=== PATIENT | male | born 1945 | race Caucasian/White ===

== ENCOUNTER → 2020-01-01 08:59 | Outpatient (CLI) | payer MEDICARE, OTHER, SELFPAY ==
[2020-01-01 10:18] LABS: Add Manual Diff / Slide Review NO; Basophils Absolute Auto 100 /uL (0-100); Basophils Percent Auto 0.8 % (0-2); Eosinophils Absolute Auto 200 /uL (0-450); Eosinophils Percent Auto 2.9 % (2-4); Hemoglobin 12.5 g/dL (13.5-17.5); Lymphocytes Absolute Auto 1700 /uL (1100-4500); Lymphocytes Percent Auto 22.9 % (25-40); Mean Corpuscular HGB Conc 33.7 % (30-36); Mean Corpuscular Hemoglobin 31.6 PG (26-34); Mean Corpuscular Volume 93.7 fL (80-100); Monocytes Absolute Auto 600 /uL (0-900); Monocytes Percent Auto 8.6 % (3-14); Neutrophils Absolute Auto 4700 /uL (1500-7000); Neutrophils Percent Auto 64.8 % (50-75); Platelet Count 225 X10^3/uL (150-400); Red Blood Cell Count 3.95 X10^6/uL (4.5-5.9); Red Cell Distribution Width 14.3 % (11.6-14.8); White Blood Cell Count 7.3 X10^3/uL (4.5-11.0)
[2020-01-01 10:29] LABS: Alanine Aminotransferase 30 IU/L (<50); Albumin 4.3 g/dL (3.5-5.0); Albumin Globulin Ratio 1.5 (1.0-2.8); Alkaline Phosphatase 49 U/L (38-126); Aspartate Aminotransferase 32 IU/L (17-59); BUN Creatinine Ratio 16.3 (6-22); Bilirubin Total 0.5 mg/dL (0.2-1.3); Blood Urea Nitrogen 14 mg/dL (9-20); Calcium 9.3 mg/dL (8.4-10.2); Carbon Dioxide 30 mmol/L (22-32); Chloride 104 mmol/L (98-107); Cholesterol 79 mg/dL (140-199); Estimated Glomerular Filt Rate > 60.0 mL/min (>60); Globulin 2.9 g/dL (1.7-4.1); Glucose 105 mg/dL (80-110); HDL Cholesterol 22 mg/dL (40-60); HEMOLYSIS < 15 (0-50); LDL Cholesterol Calculated 39 mg/dL (<100); Potassium 4.8 mmol/L (3.4-5.1); Sodium 140 mmol/L (137-145); Total Protein 7.2 g/dL (6.3-8.2); Triglycerides 92 mg/dL (35-150)
[2020-01-01 10:58] LABS: Prostate Specific Antigen Scrn 1.42 ng/mL (0.1-4.0)
== END ==
PROVIDERS: Family Provider Family Medicine; PCP Internal Medicine; Referring Provider Internal Medicine; Visit Provider Internal Medicine
DX: I25.10 Atherosclerotic heart disease of native coronary artery without angina pectoris (principal); E78.2 Mixed hyperlipidemia; I10 Essential (primary) hypertension; Z12.5 Encounter for screening for malignant neoplasm of prostate
CPT/HCPCS: 36415; 80053; 80061; 85025; G0103

== ENCOUNTER → 2022-05-24 10:24 | Outpatient (CLI) | payer MEDICARE, OTHER, SELFPAY ==
--- NOTE | 2022-05-24 | DI.CT.S_ITS ---
PROCEDURE: CT IVP A/P W/WO INDICATIONS: other microscopic hematuria TECHNIQUE: 5 mm thick noncontrast images acquired from the diaphragm to the symphysis pubis. After the administration of intravenous contrast, 5 mm thick images acquired from the diaphragm to the symphysis pubis after a 10-minute delay using a split bolus technique. 2 mm thick coronal and sagittal reformats were then performed of the kidneys and ureters. For radiation dose reduction, the following was used: automated exposure control, adjustment of mA and/or kV according to patient size. COMPARISON: None. FINDINGS: Lung bases: No pleural effusion. Multivessel coronary artery calcifications and/or stents. Urinary system: No urinary stone visualized. No definite evidence of a solid renal mass. Scattered subcentimeter hypodensities are present which are too small to characterize but are statistically likely to represent benign cysts. The opacified portions of the renal collecting systems and ureters are unremarkable without a definite filling defect demonstrated. The bladder appears trabeculated. Other solid organs: Liver is normal in size and enhancement. Gallbladder is unremarkable . Biliary system is non dilated. Fatty atrophy of the pancreas. Spleen is normal in size and enhancement. No adrenal nodules. Peritoneum and bowel: No bowel obstruction. No free air or substantial free fluid. Mild predominantly sigmoid colonic diverticulosis without evidence of acute diverticulitis. Nodes and vessels: No retroperitoneal or mesenteric adenopathy by size criteria. Aorta and inferior vena cava are normal in size. Pelvis: No pathologic free pelvic fluid. No adenopathy. Bones: Multilevel degenerative change of the visualized spine. IMPRESSION: No urinary stone or definite evidence of a solid renal mass or upper tract urothelial neoplasm. The urinary bladder appears trabeculated, which can be seen in the setting of chronic outlet obstruction. Dictated by: Tim Wagoner M.D. on 05/24/2022 at 13:41 Approved by: Tim Wagoner M.D. on 05/24/2022 at 13:54
[2022-05-24 11:00] LABS: Estimated Glomerular Filt Rate > 60 mL/min (>60)
== END ==
PROVIDERS: Radiology Diagnostic Radiology; Family Provider Family Medicine; PCP Internal Medicine; Referring Provider Student in an Organized Health Care Education/Training Program; Visit Provider Student in an Organized Health Care Education/Training Program
DX: R31.29 Other microscopic hematuria (principal)
CPT/HCPCS: 36415; 74178; 82565; Q9967

== ENCOUNTER 2022-07-28 16:12 | Emergency (ER) | payer MEDICARE, OTHER, SELFPAY ==
[2022-07-28 16:32] VITALS: BP 126/81; PULSE 94; RESP 16; TEMP 37; O2SAT 98; BMI 25.8
--- NOTE | 2022-07-28 16:40 | DI.US.S_ITS ---
PROCEDURE: US PERIPH VENOUS LOW EXTREM LT INDICATIONS: POSTERIOR CALF TIGHTNESS PER PHYSICAL THERAPIST. TECHNIQUE: Real-time imaging, as well as color and pulse Doppler interrogation, were performed of the lower extremity deep veins from the inguinal ligament to the popliteal fossa. COMPARISON: None. FINDINGS: The common femoral, femoral and popliteal veins are normally compressible, and free of intraluminal thrombus. Color and pulse Doppler demonstrate normal phasic intraluminal flow. There is normal augmentation response to distal compression maneuver. IMPRESSION: No evidence of left lower extremity DVT. Dictated by: Enrike Kruger M.D. on 07/28/2022 at 17:27 Approved by: Enrike Kruger M.D. on 07/28/2022 at 17:27
--- NOTE | 2022-07-28 18:45 | ED.EXTPRO ---
HPI - Extremity Problem General Chief complaint: Extremity Problem,Nontraumatic Stated complaint: left leg pain, sent by PT Time Seen by Provider: 07/28/22 16:14 Source: patient Mode of arrival: Ambulatory Limitations: no limitations History of Present Illness HPI Narrative: 76-year-old male who recently underwent a left total knee arthroplasty who had his 1st physical therapy appointment today in the physical therapist was noticing some swelling in the back of his left lower extremity and sent him to the emergency department for evaluation of a DVT. He is having some discomfort. No fevers. Related Data Home Medications Medication Instructions Recorded Confirmed ACETAMINOPHEN (#TYLENOL ARTHRITIS) 650 mg PO PRN ##0 08/19/11 Previous Rx's Medication Instructions Recorded nitroglycerin 0.4 mg sublingual 0.4 mg sublingual PRN ##1 09/01/10 tablet (Nitrostat) Allergies Allergy/AdvReac Type Severity Reaction Status Date / Time niacin [NIACIN] Allergy Intermediate SEVERE Unverified 07/28/22 16:38 FLUSHING pravastatin [PRAVASTATIN] Allergy Intermediate pRUITIS Unverified 07/28/22 16:38 Review of Systems Constitutional Constitutional: Reports system reviewed and no additional complaints, except as documented Musculoskeletal Musculoskeletal: Reports system reviewed and no additional complaints, except as documented Integumentary/Breasts Skin/Breast: Reports system reviewed and no additional complaints, except as documented Neurologic Neurologic: Reports system reviewed and no additional complaints, except as documented Patient History Medical History Presence of stent in artery Surgical History (Updated 01/24/18 @ 12:09 by Lori Jerry) No history of previous surgery (05/30/15) Social History Smoking Status: Former smoker Smoking Status: Former smoker alcohol intake frequency: a few times a month Substance Use Type: does not use Exam Initial Vital Signs Initial Vital Signs: Vital Signs Temperature 98.6 F 07/28/22 16:32 Pulse Rate 94 H 07/28/22 16:32 Respiratory Rate 16 07/28/22 16:32 Blood Pressure 126/81 07/28/22 16:32 Pulse Oximetry 98 07/28/22 16:32 Oxygen Delivery Method Room Air 07/28/22 16:32 Const General: cooperative, comfortable and No ill appearing [facility] Head: normal to inspection and normocephalic Resp Effort & Inspection: normal respiratory effort Cardio Rate: regular rate Skin Other: Surgical dressing is in place that is clean dry and intact. There is no surrounding erythema Extrem Other: Very minor if any swelling to the left calf muscle Course Orders Ordered: ED Orders 07/28/22 16:40 US periph venous low extrem lt Stat Vital Signs Vital signs: Vital Signs - 8 hr 07/28/22 16:32 Temperature 98.6 F Pulse Rate 94 H Respiratory Rate 16 Blood Pressure 126/81 Pulse Oximetry 98 Oxygen Delivery Method Room Air MDM - Extremity (Nontraumatic) Imaging Data US - DVT: Radiologist's Impression: PROCEDURE:? US PERIPH VENOUS LOW EXTREM LT ? INDICATIONS:? POSTERIOR CALF TIGHTNESS PER PHYSICAL THERAPIST. ? TECHNIQUE:? Real-time imaging, as well as color and pulse Doppler interrogation, were performed of the lower extremity deep veins from the inguinal ligament to the popliteal fossa.? ? COMPARISON:? None. ? FINDINGS:? The common femoral, femoral and popliteal veins are normally compressible, and free of intraluminal thrombus.? Color and pulse Doppler demonstrate normal phasic intraluminal flow.? There is normal augmentation response to distal compression maneuver. ? ? IMPRESSION:? No evidence of left lower extremity DVT. MDM Narrative Medical decision making narrative: Ultrasound shows no signs of a DVT. There is no signs of infection. Patient appears appropriate for his postoperative state. No indication to start him on anticoagulation and he can continue to follow with the postoperative instructions given to him by his orthopedic surgeon. Patient was given return precautions. He expressed understanding and agreement. Discharge Plan Departure Patient Disposition: Home Clinical Impression: Left leg pain Instructions: DI for Leg Pain Activity Restrictions/Additional Instructions: No DVT noted on the ultrasounds today. You can follow all of the postoperative instructions given to by the orthopedic surgeon. There is no indication based on your ultrasound today that you can not participate in physical therapy as outlined by your orthopedic surgeon. Prescriptions: No Action nitroglycerin [Nitrostat] 0.4 MG tablet, sublingual 0.4 mg Sublingual PRN Qty: 1 0RF ACETAMINOPHEN (#TYLENOL ARTHRITIS) 650 mg PO PRN Qty: 0 Referrals: Charles Cortes MD [Primary Care Provider] - Stand Alone Forms: Patient Portal/API
[2022-07-28 18:46] VITALS: PULSE 78
[2022-07-28 18:55] VITALS: BP 121/78; PULSE 78; RESP 14; O2SAT 99
== END 2022-07-28 18:54 | disposition home or self-care (01) ==
PROVIDERS: Emergency Provider Emergency Medicine; Family Provider Family Medicine; PCP Internal Medicine
DX: M79.605 Pain in left leg (principal); Z96.652 Presence of left artificial knee joint
CPT/HCPCS: 93971; 99283

== ENCOUNTER → 2022-11-04 08:02 | Outpatient (CLI) | payer MEDICARE, OTHER, SELFPAY ==
--- NOTE | 2022-11-04 08:05 | DI.US.S_ITS ---
PROCEDURE: US CAROTID DOPPLER BI INDICATIONS: TRANSIENT CEREBRAL ISCHEMIC ATTACK TECHNIQUE: Color and pulse Doppler interrogation was performed of both carotid systems, with image documentation and velocity measurements. COMPARISON: [facility], US, US ABD AORTA ANEURYSM SCREEN, 11/04/2022, 8:17. FINDINGS: Stenosis calculations are based on SRU (Society of Radiologists in Ultrasound) criteria. Right side: Brachial blood pressure: 136/85 mm Hg. Common carotid artery peak systolic velocity: 66 cm/sec. Internal carotid artery peak systolic velocity: 126 cm/sec. Internal carotid artery end diastolic velocity: 08/05/2033 cm/sec. External carotid artery peak systolic velocity: 74 cm/sec. ICA/CCA peak systolic ratio: 1.9 Mccoy scale imaging description: Moderate atherosclerotic change is seen. Percent internal carotid artery stenosis: 50-69% by velocity criteria Vertebral artery: Flow direction is antegrade. Left side: Brachial blood pressure: 132/82 mm Hg. Common carotid artery peak systolic velocity: 54 cm/sec. Internal carotid artery peak systolic velocity: 99 cm/sec. Internal carotid artery end diastolic velocity: 36 cm/sec. External carotid artery peak systolic velocity: 61 cm/sec. ICA/CCA peak systolic ratio: 1.8 Mccoy scale imaging description: Moderate atherosclerotic change can be seen. Percent internal carotid artery stenosis: Less than 50% by velocity criteria Vertebral artery: Flow direction is antegrade. IMPRESSION: By velocity criteria, there is approximately 50% stenosis involving the right proximal internal carotid artery. Dictated by: Braxton Bean M.D. on 11/04/2022 at 10:59 Approved by: Braxton Bean M.D. on 11/04/2022 at 11:01
--- NOTE | 2022-11-04 08:06 | DI.US.S_ITS ---
PROCEDURE: US ABD AORTA ANEURYSM SCREEN INDICATIONS: ABDOMINAL AORTIC ANEURYSM SCREENING TECHNIQUE: Real time scanning was performed of the aorta and iliac arteries, with image documentation. COMPARISON: [facility], , US CAROTID DOPPLER BI, 11/04/2022, 8:22. FINDINGS: Aorta: Proximal aortic diameter measures 1.9 cm. Mid-aorta measures 1.8 cm. Distal aortic diameter is 1.7 cm. Iliac arteries: Right common iliac artery measures 1.4 cm. Left common iliac artery measures 1.4 cm. Overall exam quality is limited, secondary to overlying bowel gas. IMPRESSION: Negative for aneurysm. Dictated by: Braxton Bean M.D. on 11/04/2022 at 11:01 Approved by: Braxton Bean M.D. on 11/04/2022 at 11:02
== END ==
PROVIDERS: Family Provider Family Medicine; PCP Student in an Organized Health Care Education/Training Program; Referring Provider Internal Medicine Cardiovascular Disease; Visit Provider Internal Medicine Cardiovascular Disease
DX: I10 Essential (primary) hypertension (principal); I25.10 Atherosclerotic heart disease of native coronary artery without angina pectoris; G45.9 Transient cerebral ischemic attack, unspecified; I65.21 Occlusion and stenosis of right carotid artery; Z13.6 Encounter for screening for cardiovascular disorders
CPT/HCPCS: 76706; 93880

== ENCOUNTER → 2022-12-28 09:06 | Outpatient (CLI) | payer MEDICARE, OTHER, SELFPAY ==
[2022-12-28 10:28] LABS: BUN Creatinine Ratio 20.5 (6-22); Blood Urea Nitrogen 18 mg/dL (9-20); Calcium 9.6 mg/dL (8.4-10.2); Carbon Dioxide 29 mmol/L (22-32); Chloride 100 mmol/L (98-107); Estimated Glomerular Filt Rate > 60 mL/min (>60); Glucose 107 mg/dL (80-110); HEMOLYSIS < 15 (0-50); Potassium 4.9 mmol/L (3.4-5.1); Sodium 138 mmol/L (137-145)
== END ==
PROVIDERS: Family Provider Family Medicine; PCP Student in an Organized Health Care Education/Training Program; Referring Provider Internal Medicine Cardiovascular Disease; Visit Provider Internal Medicine Cardiovascular Disease
DX: I25.10 Atherosclerotic heart disease of native coronary artery without angina pectoris (principal); I10 Essential (primary) hypertension
CPT/HCPCS: 36415; 80048